=== PATIENT | female | born 1970 | race Caucasian/White ===

== ENCOUNTER 2016-10-13 23:15 | Inpatient (IN) | payer SELFPAY ==
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
--- NOTE | ~2016-10-13 | EGD ---
EGD REPORT [facility] [address] [place]. [address] NAME: ANALI ZAMORA : 74 STATUS : ADM IN PAT#: [id number] AGE: 46 ADM/REG DATE : 10/14/16 MR#: [id number] REPORT SERV DATE: 10/16/16 DICTATED BY: ANKIT BROWNING DATE: 10/16/16 REPORT STATUS : Draft TRANSCRIBED BY: [facility] DATE: 10/16/16 Endoscopy Center Patient Name: Anali Zamora Date of : 1970 Attending MD: ANKIT BROWNING MD Procedure Date No Time: 10/16/2016 Procedure: Upper GI endoscopy Indications: Generalized abdominal pain, Diarrhea Medicines: Monitored Anesthesia Care Complications: No immediate complications. Estimated blood loss: Minimal. Procedure: Pre-Anesthesia Assessment: - ASA Grade Assessment: III - A patient with severe systemic disease. After obtaining informed consent, the endoscope was passed under direct vision. Throughout the procedure, the patient's blood pressure, pulse, and oxygen saturations were monitored continuously. The GIF [id number] was introduced through the mouth, and advanced to the second part of duodenum. The upper GI endoscopy was accomplished without difficulty. The patient tolerated the procedure well. Findings: The examined esophagus was normal. Multiple localized, small non-bleeding erosions were found in the gastric antrum. There were no stigmata of recent bleeding. Biopsies were taken with a cold forceps for Helicobacter pylori testing. Estimated blood loss was minimal. Localized mild inflammation characterized by congestion (edema) and erosions was found in the duodenal bulb. Biopsies were taken with a cold forceps for histology. Estimated blood loss was minimal. The cardia and gastric fundus were normal on retroflexion. Impression: - Non-bleeding erosive gastropathy. Biopsied. - Duodenitis. Biopsied. Recommendation: - Return patient to hospital [facility] for ongoing care. - Clear liquid diet today. - Use Protonix (pantoprazole) 40 mg PO daily. - Perform a colonoscopy tomorrow. Procedure Code(s): --- Professional --- 72770, Esophagogastroduodenoscopy, flexible, transoral; with biopsy, single or multiple EGD REPORT [address] [place]. [address] NAME: ANALI ZAMORA : 74 STATUS : ADM IN [facility]#: [id number] AGE: 46 ADM/REG DATE : 10/14/16 MR#: [id number] REPORT SERV DATE: 10/16/16 DICTATED BY: ANKIT BROWNING DATE: 10/16/16 REPORT STATUS : Draft TRANSCRIBED BY: [employer] DATE: 10/16/16 Diagnosis Code(s): --- Professional --- K31.9, Disease of stomach and duodenum, unspecified K29.80, Duodenitis without bleeding R10.84, Generalized abdominal pain R19.7, Diarrhea, unspecified CPT copyright 2013 [employer]. All rights reserved. The codes documented in this report are preliminary and upon surgical coder review may be revised to meet current compliance requirements. Ankit Browning MD ANKIT BROWNING MD 10/16/2016 8:08 AM This report has been signed electronically. Number of Addenda: 0 Note Initiated On: 10/16/2016 7:35 AM Scope Withdrawal Time 0 hours 0 minutes [address] [place], [place] [address] [address]
--- NOTE | ~2016-10-13 | DS ---
Discharge Summary [id number] [place]. [address] NAME: ANALI CHAUHAN : 74 STATUS : DIS IN PAT#: [id number] AGE: 46 ADM/REG DATE : 10/14/16 MR#: [id number] REPORT SERV DATE: 10/19/16 DICTATED BY: CRISSY BOOTHE DATE: 10/18/16 REPORT STATUS : Draft TRANSCRIBED BY: BRANT DATE: 10/18/16 ADMISSION DATE: 10/14/2016 DISCHARGE DATE: 10/18/2016 DIAGNOSES: 1. Acute on chronic, chronic obstructive pulmonary disease exacerbation. 2. Acute on chronic hypoxic respiratory failure. 3. Clostridium difficile diarrhea. 4. Epigastric pain with duodenitis and gastropathy. 5. Lactic acidosis. 6. Leukocytosis. 7. Recent right boxer fracture. Follow up with Dr. Jenkins. 8. Tobacco abuse. CONSULTANTS: Dr. Jenkins. GI, Dr. Ankit Panda and Dr. Feliciano Howell. FOLLOWUP: The patient should follow up with the primary care physician in one to two weeks and follow up with Dr. Jenkins in one to two weeks. DISCHARGE MEDICATIONS: Florastor one cap p.o. b.i.d., Vancocin 125 mg p.o. q.6 hours for 13 days, DuoNebs every four hours, Tylenol 650 mg p.o. q.6 hours p.r.n., Symbicort 160/4.5 two puffs inhaled b.i.d., Pepcid 20 mg p.o. daily. HOSPITAL COURSE: Please see H and P dictated by Dr. Rueda. This is a 46-year-old female with a past medical history of COPD, uses her home oxygen, also a history of chronic diarrhea, presented with shortness of breath and dyspnea on exertion, also complaint of ongoing abdominal discomfort. The patient was admitted to the Hospitalist Service through the ER for acute on chronic COPD exacerbation as well as abdominal discomfort. The patient had a CT of the abdomen and pelvis that showed no acute process in the abdomen. Also, the patient had a mesenteric ultrasound that showed no evidence of mesenteric ischemia. The patient did have known lactic elevation, therefore GI was consulted. There was no overt signs or any signs of ischemia. No bowel obstruction. The patient was sent for an EGD with findings of duodenitis and gastropathy. Later, also, the patient had a colonoscopy by GI that was overall nondiagnostic. There were no signs of ulcerations, no pseudomembranous changes at all. However, the patient's stool C. diff did come out positive. She was placed on oral Vancocin. Her COPD exacerbation resolved prior to discharge. The patient also was educated on tobacco abuse cessation and understands the importance of stopping tobacco abuse. The patient had not followed up with Dr. Jenkins for her history of a recent right boxer fracture, and therefore, Dr. Jenkins was consulted during her hospital stay. However, he states the patient should follow up in his office and does not need to be seen inpatient. Also, the patient states that she has had C. diff before in the past and understands about the diagnoses, although the patient was re-educated on importance of safety and contact precautions and compliance with medications for her treatment. Although the patient states she is on home oxygen at home, she did not have a portable oxygen tank, therefore, the Discharge Summary [address] [place]. [address] NAME: ANALI CHAUHAN : 74 STATUS : DIS IN PAT#: [id number] AGE: 46 ADM/REG DATE : 10/14/16 MR#: [id number] REPORT SERV DATE: 10/19/16 DICTATED BY: CRISSY BOOTHE DATE: 10/18/16 REPORT STATUS : Draft TRANSCRIBED BY: BRANT DATE: 10/18/16 patient will be evaluated for need for portable O2. The patient is clinically stable for discharge and to follow up with her primary care. The Case Management consulted for assistance. YENNY/BRANT Crissy Boothe M.D. / [id number] CC: Crissy Boothe M.D.
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
--- NOTE | ~2016-10-13 | EGD ---
EGD REPORT [facility] [address] [place]. [address] NAME: ANALI ZAMORA : 74 STATUS : ADM IN PAT#: [id number] AGE: 46 ADM/REG DATE : 10/14/16 MR#: [id number] REPORT SERV DATE: 10/17/16 DICTATED BY: VON SUAREZ DATE: 10/17/16 REPORT STATUS : Draft [facility]ANSCRIBED BY: [facility] DATE: 10/17/16 Endoscopy Center Patient Name: Anali Zamora Date of : 1970 Attending MD: MARYAM SUAREZ MD Procedure Date No Time: 10/17/2016 Procedure: Colonoscopy Indications: Clinically significant diarrhea of unexplained origin Medicines: See the Anesthesia note for documentation of the administered medications Complications: No immediate complications. Estimated blood loss: None. Procedure: Pre-Anesthesia Assessment: - ASA Grade Assessment: III - A patient with severe systemic disease. - Prior to the procedure, a History and Physical was performed, and patient medications and allergies were reviewed. The patient's tolerance of previous anesthesia was also reviewed. The risks and benefits of the procedure and the sedation options and risks were discussed with the patient. All questions were answered, and informed consent was obtained. Prior Anticoagulants: The patient has taken no previous anticoagulant or antiplatelet agents. After reviewing the risks and benefits, the patient was deemed in satisfactory condition to undergo the procedure. After I obtained informed consent, the scope was passed under direct vision. Throughout the procedure, the patient's blood pressure, pulse, and oxygen saturations were monitored continuously. The PCF [id number] was introduced through the anus and advanced to the terminal ileum. The ileocecal valve, appendiceal orifice, terminal ileum and rectum were photographed. The entire colon was examined. The colonoscopy was performed without difficulty. The patient tolerated the procedure well. The quality of the bowel preparation was adequate. Findings: The perianal and digital rectal examinations were normal. The terminal ileum appeared normal. Normal mucosa was found in the entire colon. Biopsies were taken with a cold forceps for histology. There is no endoscopic evidence of erythema, inflammation, ulcerations or pseudomembranous changes in the entire colon. Impression: - The examined portion of the ileum was normal. EGD REPORT [address] [address] NAME: ANALI ZAMORA : 74 STATUS : [facility] [id number] AGE: 46 ADM/REG DATE : 10/14/16 MR#: [id number] REPORT SERV DATE: 10/17/16 DICTATED BY: VON SUAREZ DATE: 10/17/16 REPORT STATUS : Draft TRANSCRIBED BY: [employer] DATE: 10/17/16 - Normal mucosa in the entire examined colon. Biopsied. Recommendation: - Patient has a contact number available for emergencies. The signs and symptoms of potential delayed complications were discussed with the patient. Return to normal activities tomorrow. Written discharge instructions were provided to the patient. - Regular diet. - Return patient to hospital [facility] for ongoing care. - Continue present medications. - Await pathology results. Procedure Code(s): --- Professional --- 95680, Colonoscopy, flexible, proximal to splenic flexure; with biopsy, single or multiple Diagnosis Code(s): --- Professional --- R19.7, Diarrhea, unspecified CPT copyright 2013 [employer]. All rights reserved. The codes documented in this report are preliminary and upon clinical coder review may be revised to meet current compliance requirements. MARYAM SUAREZ MD 10/17/2016 8:34 AM This report has been signed electronically. Number of Addenda: 0 Note Initiated On: 10/17/2016 7:57 AM Scope Withdrawal Time 0 hours 12 minutes 44 seconds [id number] [place] [id number]
[~2016-10-13 23:15] MED LIST: *UNABLE2; COMBIVENT RESPIM4 GM INH; IPRA17AE INH; KLONO5 PO; NORCO1 TA1 PO; P10; PROAIR HFA INH; PROVHFA INH; STERAPRED DS10 MG
[2016-10-13 23:48] LABS: BASOPHILS 0.6 %; BASOPHILS ABSOLUTE 0.07 10/3/uL (0.0-0.16); EOSINOPHILS 2.9 %; EOSINOPHILS ABSOLUTE 0.35 10/3/uL (0.0-0.53); ER CBC TAT 0 Hrs 08 Mins; HEMATOCRIT 39.2 % (36.0-48.0); HEMOGLOBIN 13.1 g/dL (12.0-16.0); IMMATURE GRANULOCYTES 0.2 %; IMMATURE GRANULOCYTES ABSOLUTE 0.03 10/3/uL (0.0-0.11); LYMPHOCYTES 27.9 %; LYMPHOCYTES ABSOLUTE 3.42 10/3/uL (0.67-4.30); MEAN CORPUSCULAR HEMOGLOB 29.4 pg (26.0-34.0); MEAN CORPUSCULAR VOLUME 87.9 fL (80-100); MEAN PLATELET VOLUME 10.4 fL (9.2-13.0); MONOCYTES 6.3 %; MONOCYTES ABSOLUTE 0.77 10/3/uL (0.21-1.20); NEUTROPHILS 62.1 %; NEUTROPHILS ABSOLUTE 7.64 10/3/uL (2.02-8.40); PLATELET COUNT 263 10/3/uL (150-400); RBC DISTRIBUTION WIDTH 14.6 % (12.0-16.0); RED CELL COUNT 4.46 10/6/uL (4.0-5.6); WHITE BLOOD CELLS 12.3 10/3/uL (4.5-10.5)
[2016-10-13 23:49] LABS: MANUAL DIFF NO %; MEAN CORPUS HGB CONC 33.4 g/dL (32.0-36.0)
[2016-10-13 23:56] LABS: PARTIAL THROMBO TIME 26.9 SEC (22.5-37.2); PROTIME (NOT ORD) 13.2 SEC (12.0-14.5)
[2016-10-14 00:06] LABS: CALCIUM, SERUM 8.7 MG/DL (8.5-10.4); CHEST PAIN PROFILE TAT 0 Hrs 26 Mins; CHLORIDE, SERUM 108 MMOL/L (96-112); GFR AFRICAN AMERICAN 104 ML/MIN (>=60); GFR NON AFRICAN AMERICAN 90 ML/MIN (>=60); POTASSIUM, SERUM 3.6 MMOL/L (3.5-5.3); SODIUM, SERUM 145 MMOL/L (135-148); TROPONIN I <0.02 NG/ML (<0.05)
[2016-10-14 00:08] LABS: BUN (BLOOD UREA NITROGEN) 8 MG/DL (6-23); CO2 (CARBON DIOXIDE) 32 MMOL/L (24-34); GLUCOSE, SERUM 95 MG/DL (60-99)
[2016-10-14] MEDS ORDERED: T PO (00:40)
[2016-10-14] MEDS ORDERED: DUONEB INH (00:40)
[2016-10-14 00:50] LABS: BE (BASE EXCESS) -1.5 MEQ/L (0 +/- 2.5); CARBOXYHEMOGLOBIN 4.3 % (0-3); HCO3 (ACTUAL BICARBONATE) 24.3 MEQ/L (23-27); HEMOBLOGIN CONTENT 13.1 G/DL (12-16); INSTRUMENT SERIAL # 8087; METHEMOGLOBIN 0.1 % (0-3); O2 CONTENT 16.7 VOL% (18-24); PCO2 (CO2 TENSION) 45 MMHG (35-45); PO2 (O2 TENSION) 78 MMHG (79-93); SAMPLE Arterial; pH 7.35 (7.37-7.43)
[2016-10-14 01:49] LABS: ALBUMIN 3.5 G/DL (3.5-5.0); SGOT(AST) 16 U/L (5-40); SGPT(ALT) 22 U/L (5-65); TOTAL BILIRUBIN 0.2 MG/DL (0-1.2); TOTAL PROTEIN 7.3 G/DL (6.0-8.5)
[2016-10-14 01:50] LABS: ALKALINE PHOSPHATASE 85 U/L (45-117); DIRECT BILIRUBIN < 0.1 MG/DL (0.0-0.4); INDIRECT BILIRUBIN(NOT ORDER) 0.1 MG/DL (0.1-0.9)
[2016-10-14 02:08] LABS: AMPHETAMINES (NOT ORD) NEG (NEG); BARBITURATES (NOT ORDERED NEG (NEG); BENZODIAZEPINES (NOT ORD) POS (NEG); CANNABINOIDS (THC) NEG (NEG); COCAINE (NOT ORDERED) NEG (NEG); OPIATES NEG (NEG); PHENCYCLIDINE(PCP) NEG (NEG); TRICYCLICS POS (NEG)
[2016-10-14 07:30] LABS: A/G RATIO 0.9 (0.7-1.9); ALBUMIN 3.2 G/DL (3.5-5.0); ALKALINE PHOSPHATASE 79 U/L (45-117); BUN (BLOOD UREA NITROGEN) 10 MG/DL (6-23); CALCIUM, SERUM 8.8 MG/DL (8.5-10.4); CHLORIDE, SERUM 107 MMOL/L (96-112); CO2 (CARBON DIOXIDE) 29 MMOL/L (24-34); CREATININE 0.97 MG/DL (0.55-1.02); GFR AFRICAN AMERICAN 82 ML/MIN (>=60); GFR NON AFRICAN AMERICAN 71 ML/MIN (>=60); GLOBULIN 3.6 G/DL (2.5-4.1); GLUCOSE, SERUM 141 MG/DL (60-99); PHOSPHORUS, SERUM 2.2 MG/DL (2.5-4.5); POTASSIUM, SERUM 4.1 MMOL/L (3.5-5.3); SGOT(AST) 8 U/L (5-40); SGPT(ALT) 18 U/L (5-65); SODIUM, SERUM 144 MMOL/L (135-148); TOTAL BILIRUBIN 0.5 MG/DL (0-1.2); TOTAL PROTEIN 6.8 G/DL (6.0-8.5); TROPONIN I <0.02 NG/ML (<0.05); ULTRASENSITIVE TSH 0.193 MCIU/ML (0.358-3.740)
[2016-10-14 13:06] LABS: BASOPHILS 0.1 %; BASOPHILS ABSOLUTE 0.01 10/3/uL (0.0-0.16); EOSINOPHILS 0 %; HEMATOCRIT 35.6 % (36.0-48.0); HEMOGLOBIN 11.8 g/dL (12.0-16.0); IMMATURE GRANULOCYTES 0.2 %; IMMATURE GRANULOCYTES ABSOLUTE 0.02 10/3/uL (0.0-0.11); LYMPHOCYTES 6.9 %; LYMPHOCYTES ABSOLUTE 0.63 10/3/uL (0.67-4.30); MANUAL DIFF NO %; MEAN CORPUS HGB CONC 33.1 g/dL (32.0-36.0); MEAN CORPUSCULAR HEMOGLOB 28.9 pg (26.0-34.0); MEAN CORPUSCULAR VOLUME 87.3 fL (80-100); MEAN PLATELET VOLUME 10.7 fL (9.2-13.0); MONOCYTES 0.5 %; MONOCYTES ABSOLUTE 0.05 10/3/uL (0.21-1.20); NEUTROPHILS 92.3 %; NEUTROPHILS ABSOLUTE 8.43 10/3/uL (2.02-8.40); PLATELET COUNT 257 10/3/uL (150-400); RBC DISTRIBUTION WIDTH 14.4 % (12.0-16.0); RED CELL COUNT 4.08 10/6/uL (4.0-5.6); WHITE BLOOD CELLS 9.1 10/3/uL (4.5-10.5)
[2016-10-14 13:19] LABS: BUN (BLOOD UREA NITROGEN) 13 MG/DL (6-23); CALCIUM, SERUM 8.8 MG/DL (8.5-10.4); CHLORIDE, SERUM 105 MMOL/L (96-112); CO2 (CARBON DIOXIDE) 28 MMOL/L (24-34); CREATININE 0.83 MG/DL (0.55-1.02); GFR AFRICAN AMERICAN 99 ML/MIN (>=60); GFR NON AFRICAN AMERICAN 86 ML/MIN (>=60); GLUCOSE, SERUM 139 MG/DL (60-99); POTASSIUM, SERUM 4.4 MMOL/L (3.5-5.3); SODIUM, SERUM 141 MMOL/L (135-148)
[2016-10-14 13:57] LABS: TROPONIN I <0.02 NG/ML (<0.05)
[2016-10-16 12:56] LABS: HEMATOCRIT 33.3 % (36.0-48.0); MEAN CORPUSCULAR HEMOGLOB 29.1 pg (26.0-34.0); MEAN CORPUSCULAR VOLUME 88.1 fL (80-100); MEAN PLATELET VOLUME 10.8 fL (9.2-13.0); PLATELET COUNT 192 10/3/uL (150-400); RBC DISTRIBUTION WIDTH 14.5 % (12.0-16.0); RED CELL COUNT 3.78 10/6/uL (4.0-5.6)
[2016-10-16 13:02] LABS: INTERNATIONAL NORMAL RATI 1.1 UNITS (-)
[2016-10-16 13:04] LABS: MANUAL DIFF YES %
[2016-10-16 13:15] LABS: ALBUMIN 3.2 G/DL (3.5-5.0); ALKALINE PHOSPHATASE 68 U/L (45-117); CALCIUM, SERUM 8.6 MG/DL (8.5-10.4); CHLORIDE, SERUM 107 MMOL/L (96-112); CO2 (CARBON DIOXIDE) 24 MMOL/L (24-34); CREATININE 0.99 MG/DL (0.55-1.02); GFR AFRICAN AMERICAN 80 ML/MIN (>=60); GFR NON AFRICAN AMERICAN 69 ML/MIN (>=60); SGOT(AST) 13 U/L (5-40); SGPT(ALT) 16 U/L (5-65); SODIUM, SERUM 145 MMOL/L (135-148); TOTAL BILIRUBIN 0.2 MG/DL (0-1.2); TOTAL PROTEIN 6.1 G/DL (6.0-8.5)
[2016-10-16 13:16] LABS: BUN (BLOOD UREA NITROGEN) 19 MG/DL (6-23); DIRECT BILIRUBIN < 0.1 MG/DL (0.0-0.4); GLUCOSE, SERUM 194 MG/DL (60-99); INDIRECT BILIRUBIN(NOT ORDER) 0.1 MG/DL (0.1-0.9); POTASSIUM, SERUM 3.4 MMOL/L (3.5-5.3)
[2016-10-16 13:18] LABS: LYMPHOCYTES 8 %; LYMPHOCYTES ABSOLUTE (CALC) 0.72 10/3/uL (0.67-4.30); NEUTROPHILS ABSOLUTE (CALC) 8.28 10/3/uL (2.02-8.40); PLATELET ESTIMATE ADQ (ADEQUATE); RBC MORPHOLOGY NORM (NORMAL); SEGMENTED NEUTROPHIL (0) 92 %; TOTAL NUCLEATED CELLS 100
[2016-10-18] MEDS ORDERED: SYMBICORT 160/41 INH INH (14:17)
[2016-10-18] MEDS ORDERED: PEP20 PO (14:17)
[2016-10-18] MEDS ORDERED: VANCOMYCIN PO (14:21)
[2016-10-18] MEDS ORDERED: PROBIOTIC PO (14:22)
[2016-10-18] MEDS ORDERED: NORCO1 TA1 PO (14:25)
== END 2016-10-18 14:53 | disposition home or self-care (01) | DRG 189 ==
LOC: ER 23:15 → 5SO 10-14 01:49
PROVIDERS: Internal Medicine Gastroenterology; Nurse Practitioner Family; Specialist; Student in an Organized Health Care Education/Training Program
PROC: 0DB98ZX Excision of Duodenum, Via Natural or Artificial Opening Endoscopic, Diagnostic (ICD-10-PCS; 2016-10-16)
PROC: 0DB68ZX Excision of Stomach, Via Natural or Artificial Opening Endoscopic, Diagnostic (ICD-10-PCS; 2016-10-16)
PROC: 0DBE8ZX Excision of Large Intestine, Via Natural or Artificial Opening Endoscopic, Diagnostic (ICD-10-PCS; principal; 2016-10-17 08:18)
DX: J96.21 Acute and chronic respiratory failure with hypoxia (principal); E87.2 Acidosis; A04.7 Enterocolitis due to Clostridium difficile; J44.1 Chronic obstructive pulmonary disease with (acute) exacerbation; Z99.81 Dependence on supplemental oxygen; F17.210 Nicotine dependence, cigarettes, uncomplicated; K29.80 Duodenitis without bleeding; K31.9 Disease of stomach and duodenum, unspecified; Z59.0 Homelessness; Z88.5 Allergy status to narcotic agent
CPT/HCPCS: 36600; 71010; 71250; 73130-RT; 74150; 80048; 80053; 80076; 80305; 82150; 82805; 83605; 83690; 83735; 84100; 84443; 84484; 84703; 85025; 85610; 85730; 87040; 87045; 87046; 87046-59; 87328; 87329; 87449; 87493; 87493-59; 87899; 87899-59; 88305; 89055; 93975; 94640; 96374; 99285; A9270-GY; J1170; J1885; J1956; J2405; J2920; J3010

== ENCOUNTER 2016-10-25 20:15 | Emergency (ER) | payer SELFPAY ==
[~2016-10-25 20:15] MED LIST changes: +DUONEB INH; +PEP20 PO; +PROBIOTIC PO; +SYMBICORT 160/41 INH INH; +T PO; +VANCOMYCIN PO
[2016-10-25 22:01] LABS: ASCORBIC ACID (UR NOT ORDER) NEG (NEG); BILIRUBIN, URINE NEGATIVE (NEG); ER URINALYSIS TAT 0 Hrs 12 Mins; KETONE, URINE NEGATIVE (NEG); LEUKOCYTE ESTERASE(NOT OR NEG (NEG); NITRITE (URINE) NEG (NEG); WBC (NOT ORDERED) (RFLEX) 1 (0-5)
[2016-10-26 03:20] LABS: BASOPHILS 0.3 %; BASOPHILS ABSOLUTE 0.04 10/3/uL (0.0-0.16); EOSINOPHILS 2.7 %; EOSINOPHILS ABSOLUTE 0.34 10/3/uL (0.0-0.53); HEMOGLOBIN 12.5 g/dL (12.0-16.0); IMMATURE GRANULOCYTES 0.5 %; IMMATURE GRANULOCYTES ABSOLUTE 0.06 10/3/uL (0.0-0.11); LYMPHOCYTES 23.3 %; LYMPHOCYTES ABSOLUTE 2.95 10/3/uL (0.67-4.30); MEAN CORPUS HGB CONC 33.6 g/dL (32.0-36.0); MEAN CORPUSCULAR HEMOGLOB 29.7 pg (26.0-34.0); MEAN CORPUSCULAR VOLUME 88.4 fL (80-100); MEAN PLATELET VOLUME 10.7 fL (9.2-13.0); MONOCYTES 5.4 %; MONOCYTES ABSOLUTE 0.69 10/3/uL (0.21-1.20); NEUTROPHILS 67.8 %; NEUTROPHILS ABSOLUTE 8.59 10/3/uL (2.02-8.40); PLATELET COUNT 239 10/3/uL (150-400); RBC DISTRIBUTION WIDTH 14.9 % (12.0-16.0); RED CELL COUNT 4.21 10/6/uL (4.0-5.6)
[2016-10-26 03:21] LABS: HEMATOCRIT 37.2 % (36.0-48.0); MANUAL DIFF NO %; WHITE BLOOD CELLS 12.7 10/3/uL (4.5-10.5)
[2016-10-26 03:37] LABS: ALBUMIN 3.5 G/DL (3.5-5.0); CALCIUM, SERUM 8.6 MG/DL (8.5-10.4); CHLORIDE, SERUM 107 MMOL/L (96-112); CREATININE 0.82 MG/DL (0.55-1.02); GFR AFRICAN AMERICAN 101 ML/MIN (>=60); GFR NON AFRICAN AMERICAN 87 ML/MIN (>=60); GLOBULIN 3.5 G/DL (2.5-4.1); POTASSIUM, SERUM 3.5 MMOL/L (3.5-5.3); SGOT(AST) 13 U/L (5-40); SGPT(ALT) 23 U/L (5-65); SODIUM, SERUM 146 MMOL/L (135-148); TOTAL BILIRUBIN 0.2 MG/DL (0-1.2)
[2016-10-26 03:41] LABS: ALKALINE PHOSPHATASE 83 U/L (45-117); BUN (BLOOD UREA NITROGEN) 6 MG/DL (6-23); CO2 (CARBON DIOXIDE) 31 MMOL/L (24-34); GLUCOSE, SERUM 79 MG/DL (60-99)
[2016-10-26 04:56] LABS: AMPHETAMINES (NOT ORD) NEG (NEG); BARBITURATES (NOT ORDERED NEG (NEG); BENZODIAZEPINES (NOT ORD) NEG (NEG); CANNABINOIDS (THC) NEG (NEG); COCAINE (NOT ORDERED) NEG (NEG); OPIATES NEG (NEG); PHENCYCLIDINE(PCP) NEG (NEG); TRICYCLICS NEG (NEG)
== END 2016-10-26 05:50 | disposition home or self-care (01) ==
LOC: ER 20:15
PROVIDERS: Emergency Medicine; Nurse Practitioner Acute Care
DX: K29.60 Other gastritis without bleeding (principal); B96.89 Other specified bacterial agents as the cause of diseases classified elsewhere; J45.901 Unspecified asthma with (acute) exacerbation; J44.9 Chronic obstructive pulmonary disease, unspecified; F17.200 Nicotine dependence, unspecified, uncomplicated; Z90.49 Acquired absence of other specified parts of digestive tract; Z88.5 Allergy status to narcotic agent; Z79.899 Other long term (current) drug therapy
CPT/HCPCS: 74176; 80053; 80305; 81001; 83605; 83690; 84703; 85025; 87045; 87046; 87046-59; 87493; 87493-59; 87899; 87899-59; 89055; 94640; 96374; 99284; C9113; J2405